=== PATIENT | female | born 2000 | race Hispanic/Latino ===

== ENCOUNTER 2021-08-09 19:46 | Emergency (ER) | payer MEDICAID ==
[~2021-08-09] VITALS: Ht 157.5 cm; Wt 97.5 kg
[2021-08-09 20:46] LABS: APPEARANCE,URINE Turbid (CLEAR); BILIRUBIN,URINE Small (NEGATIVE); COLOR,URINE Dark Yellow (YELLOW); GLUCOSE, URINE (UA) Negative (NEGATIVE); KETONES,URINE 15 mg/dL (NEGATIVE); LEUKOCYTE ESTERASE ,URINE Large (NEGATIVE); NITRATE,URINE Negative (NEGATIVE); OCCULT BLOOD,URINE Small (NEGATIVE); PROTEIN,URINE POS 1+ mg/dL (NEGATIVE)
[2021-08-09 20:49] LABS: HCG,QUAL RESULT NEGATIVE (NEGATIVE)
[2021-08-09 20:59] LABS: BASOPHILS % (AUTO) 0.5 % (0.0-5.0); EOSINOPHILS % (AUTO) 0.4 % (0.0-8.0); HEMATOCRIT 41.2 % (36-48); LYMPHOCYTES % (AUTO) 36.5 % (21.0-51.0); MEAN CORPUSCULAR HEMOGLOBIN 32.1 pg (27.0-33.0); MEAN CORPUSCULAR HGB CONC 34.5 g/dL (32.0-36.0); MEAN CORPUSCULAR VOLUME 93.2 fL (80-100); MONOCYTES % (AUTO) 7.9 % (3.0-13.0); NEUTROPHILS % (AUTO) 54.5 % (40.0-77.0); PLATELET COUNT (AUTO) 209 K/uL (130-400); RED BLOOD CELL COUNT(AUTO) 4.42 MIL/uL (4.00-5.50); RED CELL DISTRIBUTION WIDTH 11.7 % (11.0-15.5); WHITE BLOOD COUNT (AUTO) 10.2 K/uL (4.8-10.8)
[2021-08-09 21:06] LABS: BACTERIA,URINE Many /HPF (None Seen); WBC,URINE 51-100 /HPF (0-1)
[2021-08-09 21:07] LABS: MUCUS,URINE Many LPF (None Seen)
[2021-08-09] MEDS: CEFTRIAXONE 1G VIAL IVP ONE (21:10)
[2021-08-09] MEDS: 0.9%NACL 1000ML 1,000 ML IV ONE (21:10)
[2021-08-09] MEDS: ACETAMINOPHEN 500 MG TABLET PO ONE (21:10)
[2021-08-09] MEDS ORDERED: FAMC500T8 PO (22:05)
[2021-08-09] MEDS ORDERED: PHEN-847 PO (22:05)
[2021-08-09] MEDS ORDERED: CEPH500B PO (22:05)
[2021-08-09 22:12] VITALS: BP 131/86
[2021-08-12 18:10] LABS: HEPATITIS A ANTIBODY IGM Negative (Negative); HEPATITIS B CORE IGM Negative (Negative); HEPATITIS Bs ANTIGEN SCREEN P Negative (Negative); HEPATITIS C VIRUS ANTIBODY <0.1 s/co ratio (0.0-0.9)
[2021-08-13 06:10] LABS: HEPATITIS C PCR QUANTITATIVE SEE SEPARATE REPORT
[2021-08-13 06:13] LABS: HERPES SIMPLEX VIRUS-1 BY PCR Positive (Negative); HERPES SIMPLEX VIRUS-2 BY PCR Negative (Negative)
== END 2021-08-09 22:22 | disposition home or self-care (01) ==
LOC: EDH 19:46
DX: A60.09 Herpesviral infection of other urogenital tract (principal); N39.0 Urinary tract infection, site not specified; E86.0 Dehydration; E66.9 Obesity, unspecified; Z88.6 Allergy status to analgesic agent; Z68.39 Body mass index [BMI] 39.0-39.9, adult
CPT/HCPCS: 36415; 81001; 81025; 83605; 85025; 86592; 86705; 86709; 87040 ×2; 87088; 87340; 87486; 87529; 87797; 96361; 96374; 99283; J0696; J7030

== ENCOUNTER 2022-02-22 06:01 | Observation (INO) | payer MEDICAID ==
[~2022-02-22] VITALS: Ht 157.5 cm; Wt 104.4 kg
[~2022-02-22 06:01] MED LIST: CEPH500B PO; FAMC500T8 PO; PHEN-847 PO
[2022-02-22 06:02] VITALS: BP 145/84
[2022-02-22 06:48] LABS: AMPHET/METH SCREEN,URINE NEGATIVE (NEGATIVE); BARBITURATE SCREEN, URINE NEGATIVE (NEGATIVE); BENZODIAZEPINES SCREEN,URINE NEGATIVE (NEGATIVE); CANNABINOID SCREEN,URINE POSITIVE (NEGATIVE); COCAINE SCREEN,URINE NEGATIVE (NEGATIVE); PHENCYCLIDINE SCREEN,URINE NEGATIVE (NEGATIVE)
[2022-02-22 06:49] LABS: APPEARANCE,URINE CLEAR (CLEAR); BILIRUBIN,URINE NEGATIVE (NEGATIVE); COLOR,URINE YELLOW (YELLOW); GLUCOSE, URINE (UA) NEGATIVE (NEGATIVE); KETONES,URINE NEGATIVE (NEGATIVE); LEUKOCYTE ESTERASE ,URINE NEGATIVE (NEGATIVE); NITRATE,URINE NEGATIVE (NEGATIVE); OCCULT BLOOD,URINE NEGATIVE (NEGATIVE); PROTEIN,URINE NEGATIVE (NEGATIVE); UROBILINOGEN,URINE 0.2 mg/dL (0.2-1.0)
== END 2022-02-22 08:23 | disposition home or self-care (01) ==
LOC: EDH 06:01 → LDH 06:02
PROVIDERS: ADMIT Obstetrics & Gynecology; ATTEND Obstetrics & Gynecology
DX: O26.892 Other specified pregnancy related conditions, second trimester (principal); R10.2 Pelvic and perineal pain; R10.30 Lower abdominal pain, unspecified; O99.322 Drug use complicating pregnancy, second trimester; F12.90 Cannabis use, unspecified, uncomplicated; O99.332 Smoking (tobacco) complicating pregnancy, second trimester; F17.200 Nicotine dependence, unspecified, uncomplicated; Z3A.21 21 weeks gestation of pregnancy
CPT/HCPCS: 80305; 81003; G0378 ×2; G0379